=== PATIENT | female | born 1945 | race Caucasian/White ===

== ENCOUNTER 2016-06-05 22:28 | Observation (INO) | payer MEDICARE, OTHER ==
[~2016-06-05] VITALS: Ht 170.2 cm; Wt 107.0 kg
[~2016-06-05 22:28] MED LIST: ASCO500 PO; BUME1TAB PO; CART240C4 PO; DUONI NEB; GEMF600 PO; K-TA10TA5 PO; METF500 PO; METO25 PO; OMEP20TA PO; PLAV75TA PO; PRAM0.5T PO; SERT25TA83 PO; Z.0.OXYGEN INH
[2016-06-05 22:54] VITALS: BP 141/73; PULSE 90; RESP 18; TEMP 98.6; O2SAT 95
[2016-06-06] VITALS (10 sets, daily range): BP systolic 133–196; BP diastolic 60–72; PULSE 74–96; RESP 18; TEMP 97.1–98.8; O2SAT 92–100
[2016-06-06] MEDS ORDERED: METO25TA3 PO (01:49)
[2016-06-06] MEDS ORDERED: GEMF600T PO (01:49)
[2016-06-06] MEDS ORDERED: ALBU0.08 NEB (01:49)
[2016-06-06] MEDS ORDERED: CEFU1TAB20 PO (01:49)
[2016-06-06] MEDS ORDERED: BUME1TAB PO (01:49)
[2016-06-06] MEDS ORDERED: OMEP20TA PO (01:49)
[2016-06-06] MEDS ORDERED: PRAM0.5T PO (01:49)
[2016-06-06] MEDS ORDERED: APIX5TAB PO (01:49)
[2016-06-06] MEDS ORDERED: AMIO200T PO (01:49)
[2016-06-06] MEDS ORDERED: METF500T PO (01:49)
[2016-06-06] MEDS ORDERED: ASPI1TAB69 PO (01:49)
[2016-06-06] MEDS ORDERED: METO2.5T PO (01:49)
[2016-06-06] MEDS ORDERED: POTA-245 PO (01:49)
[2016-06-06] MEDS ORDERED: CART240C PO (01:49)
[2016-06-06] MEDS ORDERED: MONT10TA4 PO (01:49)
[2016-06-06] MEDS ORDERED: TRAZ50TA12 PO (01:49)
--- NOTE | 2016-06-06 02:38 | PD ---
HPI Chief Complaint: Nosebleed Time Seen by Provider: 02:38 Travel History International Travel<30 days: No Contact w/Intl Traveler<30days: No Traveled to known affect area: No History of Present Illness HPI 70-year-old female presents to the emergency department by private transportation for nosebleed since 8:30 PM. Patient is on Eliquis for diagnosis of stroke and atrial fibrillation. Patient denies any digital exploration or trauma to the nose. Patient states she just started spontaneously bleeding from the nose which has been persistent and unremitting since onset. The dizziness no lightheadedness. Nasal congestion and denies any vomiting. No recent illness. Patient has taken medications as prescribed and blood pressure has been well-controlled. No recent respiratory illness. PFSH Past Medical History Narrative Medical Atrial fibrillation diabetes COPD CAD hypertension dyslipidemia 2 mild strokes no tobacco use nursing notes reviewed Arthritis: Yes Asthma: No Atrial Fibrillation: Yes Depression: Yes Cancer: No Cardiovascular Problems: Yes COPD: Yes Diabetes: Yes Patient Takes Glucophage: Yes Diminished Hearing: No Endocrine: No Gastrointestinal Disorders: Yes (GERD-RICHARDSON'S ESOPHAGUS) GERD: Yes Genitourinary: No Hepatitis: No Hiatal Hernia: Yes Hypertension: Yes Immune Disorder: No Medical other: Yes (RESTLESS LEG, 12/07/2015 [facility]UE TO DEHYDRATION) Musculoskeletal: Yes (BOTH HIPS) Neurologic: Yes (MILD STROKE 2016) Psychiatric: Yes (DEPRESSION) Reproductive: No Respiratory: Yes (COPD) Thyroid Disease: No Tetanus Vaccination: < 5 Years Influenza Vaccination: Yes PNEUMOCCOCAL Vaccine (Year): 2 Menopausal: Yes : 1 Para: 1 Past Surgical History Abdominal Surgery: Yes (CHOLY) AICD: No Body Medical Devices: NONE Cardiac Surgery: No Cholecystectomy: Yes Ear Surgery: No Endocrine Surgery: No Eye Surgery: Yes (BILATERAL CATARACTS) Genitourinary Surgery: No Gynecologic Surgery: Yes (HYSTERECTOMY) Hysterectomy: Yes Joint Replacement: No Neurologic Surgery: No Oral Surgery: Yes (TONSILLECTOMY, TEETH EXTRACTION) Pacemaker: No Thoracic Surgery: No Other Surgery: Yes Social History Alcohol Use: Yes (WINE ONCE IN A WHILE) Tobacco Use: No Substance Use: No Allergies-Medications (Allergen,Severity, Reaction): Coded Allergies: Simvastatin (Unverified Allergy, Severe, HIVES, 06/06/16) HMG-CoA Reductase Inhibitors (Verified Allergy, Intermediate, RASH, 06/06/16 ) Reported Meds & Prescriptions Reported Meds & Active Scripts Active Reported Albuterol Neb (Albuterol Sulfate) 2.5 Mg/3 Ml Neb 2.5 Mg NEB TID NEB PRN Klor-Con M20 (Potassium Chloride Microencaps) 20 Meq Tab 20 Meq PO Q12HR Cefuroxime (Cefuroxime Axetil) 500 Mg Tab 500 Mg PO BID Gemfibrozil 600 Mg Tab 600 Mg PO DAILY Take 30 minutes prior to breakfast and dinner. Metoprolol Tartrate 25 Mg Tab 25 Mg PO BID Bumetanide 1 Mg Tab 1 Mg PO BID Pramipexole (Pramipexole Dihydrochloride) 0.5 Mg Tab 0.5 Mg PO TID Metolazone 2.5 Mg Tab 2.5 Mg PO DAILY Cartia Xt (Diltiazem ER 24 HR) 240 Mg Caper 240 Mg PO DAILY Metformin (Metformin HCl) 500 Mg Tab 500 Mg PO BIDPC With meals Eliquis (Apixaban) 5 Mg Tab 5 Mg PO BID Amiodarone (Amiodarone HCl) 200 Mg Tab 200 Mg PO BID Aspirin 81 Mg Tabdr 81 Mg PO DAILY Omeprazole 20 Mg Tab 20 Mg PO DAILY Montelukast (Montelukast Sodium) 10 Mg Tab 10 Mg PO HS Trazodone (Trazodone HCl) 50 Mg Tab 50 Mg PO HS Review of Systems Except as stated in HPI: all other systems reviewed are Neg General / Constitutional: No: Fever, Chills Eyes: No: Visual changes HENT: Positive: Nosebleed, No: Headaches Cardiovascular: No: Chest Pain or Discomfort Respiratory: No: Shortness of Breath Gastrointestinal: No: Vomiting, Abdominal Pain Genitourinary: No: Flank Pain Musculoskeletal: No: Myalgias, Arthralgias Skin: No Rash Neurologic: No: Weakness Psychiatric: No: Anxiety Hematologic/Lymphatic: Positive: Easy Bruising Physical Exam Narrative GENERAL: Well-developed well-nourished female in no acute distress no respiratory distress holding her nose with ongoing epistaxis. SKIN: Warm and dry. HEAD: Normocephalic. EYES: No scleral icterus. No injection or drainage. ENT: Posterior pharynx with fresh blood noted airway is otherwise patent; nasal speculum identifies no nasal septum patient reports this is a chronic problem secondary to infection. NECK: Supple, trachea midline. No JVD or lymphadenopathy. CARDIOVASCULAR: Regular rate and rhythm without murmurs, gallops, or rubs. RESPIRATORY: Breath sounds equal bilaterally. No accessory muscle use. GASTROINTESTINAL: Abdomen soft, non-tender, nondistended. MUSCULOSKELETAL: No cyanosis, or edema. BACK: Nontender without obvious deformity. No CVA tenderness. Data Data Last Documented VS Vital Signs Date Time Temp Pulse Resp B/P Pulse Ox O2 Delivery O2 Flow Rate FiO2 06/06/16 01:50 78 18 06/06/16 01:50 196/68 92 Room Air 06/05/16 22:54 98.6 Orders Thrombin Top Soln (Thrombin Top Soln) (06/06/16 02:45) Gelfoam 100 Top (Gelfoam 100 Top) (06/06/16 02:45) Complete Blood Count With Diff (06/06/16 02:38) Basic Metabolic Panel (Bmp) (06/06/16 02:38) Type And Screen (06/06/16 02:38) Act Partial Throm Time (Ptt) (06/06/16 02:38) Prothrombin Time / Inr (Pt) (06/06/16 02:38) ^ Saline Lock (06/06/16 02:38) Oxymetazoline 0.05% Christiano Anna (Afrin 0.0 (06/06/16 03:00) Place In Observation (06/06/16 ) Vital Signs (Adult) Q4H (06/06/16 04:01) Activity Oob With Assistance (06/06/16 04:01) Diploma Maker / Telemetry .CONTINUOUS (06/06/16 04:01) Sodium Chloride 0.9% Flush (Ns Flush) (06/06/16 04:15) Sodium Chloride 0.9% Flush (Ns Flush) (06/06/16 09:00) Complete Blood Count With Diff (06/07/16 06:00) Case Management Consult (06/06/16 04:01) Scd Bilateral/Knee High TRINI.BID (06/06/16 04:01) Naloxone Inj (Narcan Inj) (06/06/16 04:15) Consult Ent (06/06/16 ) Albuterol-Ipratropium Neb (Duoneb Neb) (06/06/16 04:15) Admit Order (Ed Use Only) (06/06/16 ) ^ Saline Lock (06/06/16 04:03) Resp Oxygen Christiano C Titrat 1-4 L (06/06/16 ) ^ Notify Dr: Other (06/06/16 04:03) Sodium Chloride 0.9% Flush (Ns Flush) (06/06/16 09:00) Sodium Chloride 0.9% Flush (Ns Flush) (06/06/16 04:15) Labs Laboratory Tests Test 06/06/16 02:00 White Blood Count 11.6 TH/MM3 Red Blood Count 4.66 MIL/MM3 Hemoglobin 14.2 GM/DL Hematocrit 42.7 % Mean Corpuscular Volume 91.7 FL Mean Corpuscular Hemoglobin 30.5 PG Mean Corpuscular Hemoglobin 33.3 % Concent Red Cell Distribution Width 16.9 % Platelet Count 197 TH/MM3 Mean Platelet Volume 9.3 FL Neutrophils (%) (Auto) 78.3 % Lymphocytes (%) (Auto) 16.6 % Monocytes (%) (Auto) 4.3 % Eosinophils (%) (Auto) 0.3 % Basophils (%) (Auto) 0.5 % Neutrophils # (Auto) 9.1 TH/MM3 Lymphocytes # (Auto) 1.9 TH/MM3 Monocytes # (Auto) 0.5 TH/MM3 Eosinophils # (Auto) 0.0 TH/MM3 Basophils # (Auto) 0.1 TH/MM3 CBC Comment DIFF FINAL Differential Comment Prothrombin Time 10.7 SEC Prothromb Time International 1.0 RATIO Ratio Activated Partial 23.0 SEC Thromboplast Time Sodium Level 136 MEQ/L Potassium Level 2.5 MEQ/L Chloride Level 90 MEQ/L Carbon Dioxide Level 35.8 MEQ/L Anion Gap 10 MEQ/L Blood Urea Nitrogen 28 MG/DL Creatinine 1.20 MG/DL Estimat Glomerular Filtration 44 ML/MIN Rate Random Glucose 140 MG/DL Calcium Level 9.6 MG/DL Blood Type O NEGATIVE Antibody Screen NEGATIVE MDM Medical Decision Making Medical Screen Exam Complete: Yes Emergency Medical Condition: Yes Medical Record Reviewed: Yes Interpretation(s) CBC & BMP Diagram 06/06/16 02:00 Vital Signs Date Time Temp Pulse Resp B/P Pulse Ox O2 Delivery O2 Flow Rate FiO2 06/06/16 01:50 78 18 06/06/16 01:50 78 18 196/68 92 Room Air 06/05/16 22:54 98.6 90 18 141/73 95 Differential Diagnosis Epistaxis, venous versus arterial, anticoagulation with pelvic was exacerbation , uncontrolled hypertension, local/focal trauma Narrative Course IV access obtained specimens collected and sent for resulting patient 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 Afrin nasal decongestant spray patient with out nasal septum therefore not a true candidate for Rhino Rocket case discussed with on-call ENT recommends thrombin and Gelfoam Coagulation studies not prolonged hemoglobin stable a she is identified to have hypokalemia; patient administered oral replacement of potassium Patient's case discussed with medicine for admission to [facility] at ENTs request Patient's bleeding has subsided patient resting comfortably waiting for transfer to [facility] Physician Communication Physician Communication case discussed with Dr Nash--rec thrombin and gelfoam packing admit to [facility]; discussed with DR Ivory will admit to OBS Diagnosis Primary Impression: Epistaxis Additional Impression: Hypokalemia Admitting Information Admitting Physician Requests: Observation Emily Colin MD Jun 06, 2016 02:38
[2016-06-06] MEDS ORDERED: THROMBIN (TOPICAL) 5,000 UNIT VIAL TOPICAL ONE (02:45)
[2016-06-06] MEDS ORDERED: GELFOAM SIZE 100 TOPICAL ONE (02:45)
[2016-06-06] MEDS ORDERED: OXYMETAZOLINE HCL 0.05% 15 ML NASAL SPRAY NASAL ONE (03:00)
[2016-06-06 03:21] LABS: AUTOMATED NEUTROPHIL # 9.1 TH/MM3 (1.8-7.7); BASOPHIL # 0.1 TH/MM3 (0-0.2); BASOPHIL % 0.5 % (0.0-2.0); EOSINOPHIL % 0.3 % (0.0-4.0); HEMATOCRIT 42.7 % (35.0-46.0); LYMPH % 16.6 % (9.0-44.0); LYMPHOCYTE # 1.9 TH/MM3 (1.0-4.8); MEAN CELL VOLUME 91.7 FL (80.0-100.0); MEAN CORPUSCULAR HEMOGLOBIN 30.5 PG (27.0-34.0); MEAN CORPUSCULAR HGB CONC 33.3 % (32.0-36.0); MONO % 4.3 % (0.0-8.0); NEUT % 78.3 % (16.0-70.0); PLATELET COUNT 197 TH/MM3 (150-450); RED BLOOD COUNT 4.66 MIL/MM3 (4.00-5.30); RED CELL DISTRIBUTION WIDTH 16.9 % (11.6-17.2); WHITE BLOOD COUNT 11.6 TH/MM3 (4.0-11.0)
[2016-06-06 03:33] LABS: PROTHROMBIN TIME - PATIENT 10.7 SEC (9.8-11.6)
[2016-06-06 03:38] LABS: HEMO FLAGS DIFF FINAL
[2016-06-06 04:05] LABS: BICARBONATE 35.8 MEQ/L (21.0-32.0)
[2016-06-06 04:06] LABS: POTASSIUM 2.5 MEQ/L (3.5-5.1)
[2016-06-06] MEDS ORDERED: SODIUM CHLORIDE 0.9% FLUSH 5 ML FLUSH IVF PRN (04:15)
[2016-06-06] MEDS ORDERED: NALOXONE HCL 0.4 MG/ML AMP IV PRN (04:15)
[2016-06-06] MEDS ORDERED: SODIUM CHLORIDE 0.9% FLUSH 5 ML FLUSH FLUSH PRN (04:15)
[2016-06-06] MEDS ORDERED: RESP: ALBUTEROL 2.5 MG/IPRATROPIUM 0.5 MG NEB (PRN) NEB (04:15)
[2016-06-06] MEDS ORDERED: POTASSIUM CHLORIDE 20 MEQ CONTROLLED RELEASE TAB PO ONE ×2 (06:15→18:45)
[2016-06-06] MEDS: SODIUM CHLORIDE 0.9% FLUSH 5 ML FLUSH FLUSH SCH ×2 (08:48→20:30)
[2016-06-06] MEDS ORDERED: SODIUM CHLORIDE 0.9% FLUSH 5 ML FLUSH IVF SCH (09:00)
[2016-06-06 09:58] LABS: MAGNESIUM 1.7 MG/DL (1.5-2.5)
[2016-06-06 10:07] LABS: INDIRECT BILIRUBIN 0.3 MG/DL (0.0-0.8); TOTAL BILIRUBIN ADULT 0.5 MG/DL (0.2-1.0)
[2016-06-06 10:09] LABS: POTASSIUM 2.6 MEQ/L (3.5-5.1)
[2016-06-06] MEDS: POTASSIUM CHLOR 20 MEQ PREMIX 100 ML IV SCH ×2 (10:42→13:17)
[2016-06-06] MEDS: PRAMIPEXOLE DIHYDROCHLORIDE 0.25 MG TAB PO SCH ×2 (13:22→18:24)
--- NOTE | 2016-06-06 18:09 | HHI.HP ---
[facility] Service [facility] Primary Care Physician Non-Staff Admission Diagnosis Epistaxis; Eliquis Diagnoses: Chief Complaint: Epistaxis Travel History International Travel<30 Days: No Contact w/Intl Traveler <30 Da: No Traveled to Known Affected Are: No History of Present Illness Patient is a 70 year old female with primary medical history of A. fib on Eliquis, COPD, CAD, HTN, HLD, CVA 2 mild left-sided weakness, GERD who came into the hospital for epistaxis. States that she woke up with gushing blood on her face. Patient denies any digital exploration or trauma to the nose. Patient states she just started spontaneously bleeding from the nose which has been persistent and unremitting since onset. Nasal packing was done bilaterally. On exam, patient on humidified face tent, denies SOB, dyspnea. States she has COPD and is nebulization at home. She also reports she had some bronchitis, now worsening. Otherwise, denies pain and discomfort. Denies chest pain, palpitations, headaches, dizziness. Denies fevers, chills, n/v/d. Review of Systems Other Negative except for what is noted on history of present illness. Past Family Social History Past Medical History A. fib on Eliquis COPD CAD HTN HLD CVA x 2with mild left-sided weakness Arthritis Preston's esophagus GERD Restless leg Past Surgical History Cholecystectomy Bilateral cataract surgery hysterectomy Foot surgery Tonsillectomy Reported Medications Albuterol Neb (Albuterol Sulfate) 2.5 Mg/3 Ml Neb 2.5 Mg NEB TID NEB PRN Klor-Con M20 (Potassium Chloride Microencaps) 20 Meq Tab 20 Meq PO Q12HR Cefuroxime (Cefuroxime Axetil) 500 Mg Tab 500 Mg PO BID Gemfibrozil 600 Mg Tab 600 Mg PO DAILY Take 30 minutes prior to breakfast and dinner. Metoprolol Tartrate 25 Mg Tab 25 Mg PO BID Bumetanide 1 Mg Tab 1 Mg PO BID Pramipexole (Pramipexole Dihydrochloride) 0.5 Mg Tab 0.5 Mg PO TID Metolazone 2.5 Mg Tab 2.5 Mg PO DAILY Cartia Xt (Diltiazem ER 24 HR) 240 Mg Caper 240 Mg PO DAILY Metformin (Metformin HCl) 500 Mg Tab 500 Mg PO BIDPC With meals Eliquis (Apixaban) 5 Mg Tab 5 Mg PO BID Amiodarone (Amiodarone HCl) 200 Mg Tab 200 Mg PO BID Aspirin 81 Mg Tabdr 81 Mg PO DAILY Omeprazole 20 Mg Tab 20 Mg PO DAILY Montelukast (Montelukast Sodium) 10 Mg Tab 10 Mg PO HS Trazodone (Trazodone HCl) 50 Mg Tab 50 Mg PO HS Allergies: Coded Allergies: Simvastatin (Unverified Allergy, Severe, HIVES, 06/06/16) HMG-CoA Reductase Inhibitors (Verified Allergy, Intermediate, RASH, 06/06/16 ) Active Ordered Medications Current Medications Medications (Trade) Dose Ordered Sig/Olga Route Start Time Stop Time Status Last Admin (NS Flush) 2 ml UNSCH PRN FLUSH 06/06/16 04:15 (NS Flush) 2 ml BID FLUSH 06/06/16 09:00 06/06/16 08:48 (Narcan Inj) 0.4 mg UNSCH PRN IV 06/06/16 04:15 (Cordarone) 200 mg BID PO 06/06/16 21:00 (Bumetanide) 1 mg BID PO 06/06/16 21:00 (Lopid) 600 mg DAILY PO 06/07/16 09:00 (Lopressor) 25 mg BID PO 06/06/16 21:00 (Singulair) 10 mg HS PO 06/06/16 21:00 (Protonix) 20 mg DAILY PO 06/07/16 09:00 (KCl) 20 meq Q12HR PO 06/06/16 21:00 (Mirapex) 0.5 mg TID PO 06/06/16 13:00 06/06/16 13:22 (Desyrel) 50 mg HS PO 06/06/16 21:00 Family History Both parents . Father has stroke Mother has diabetes Social History Reports occasional alcohol use Former smoker quit 25 years ago, smokes 1-to-1/2 pack per day 30 years Denies illicit drug use Physical Exam Vital Signs Vital Signs Date Time Temp Pulse Resp B/P Pulse Ox O2 Delivery O2 Flow Rate FiO2 06/06/16 14:43 97.1 96 18 142/68 96 06/06/16 13:00 88 18 144/60 100 Face Tent 6 28 06/06/16 06:55 77 18 141/72 95 Room Air 06/06/16 06:00 74 18 153/68 93 Room Air 06/06/16 04:28 92 06/06/16 01:50 78 18 06/06/16 01:50 78 18 196/68 92 Room Air 06/05/16 22:54 98.6 90 18 141/73 95 Physical Exam GENERAL: This is a well-nourished, well-developed patient, in no apparent distress. SKIN: No rashes, ecchymoses or lesions. Cool and dry. HEAD: Atraumatic. Normocephalic. No temporal or scalp tenderness. EYES: Pupils equal round and reactive. Extraocular motions intact. No scleral icterus. No injection or drainage. ENT: Nose without bleeding, nasal packing in place bilateral nares. Throat without erythema, dried blood noted. Uvula midline. Airway patent. NECK: Trachea midline. No JVD or lymphadenopathy. Supple, nontender, no meningeal signs. CARDIOVASCULAR: Regular rate and rhythm without murmurs, gallops, or rubs. RESPIRATORY: Diminished breath sounds. No wheezes, rales, or rhonchi. GASTROINTESTINAL: Abdomen soft, non-tender, nondistended. Bowel sounds active 4. MUSCULOSKELETAL: Extremities without clubbing, cyanosis, or edema. No joint tenderness, effusion, or edema noted. No calf tenderness. Negative Homans sign bilaterally. NEUROLOGICAL: Awake and alert. Oriented 3. Motor and sensory grossly within normal limits. No Focal neuro deficit. Normal speech. Laboratory Laboratory Tests Test 06/06/16 06/06/16 02:00 09:20 White Blood Count 11.6 Red Blood Count 4.66 Hemoglobin 14.2 Hematocrit 42.7 Mean Corpuscular Volume 91.7 Mean Corpuscular Hemoglobin 30.5 Mean Corpuscular Hemoglobin 33.3 Concent Red Cell Distribution Width 16.9 Platelet Count 197 Mean Platelet Volume 9.3 Neutrophils (%) (Auto) 78.3 Lymphocytes (%) (Auto) 16.6 Monocytes (%) (Auto) 4.3 Eosinophils (%) (Auto) 0.3 Basophils (%) (Auto) 0.5 Neutrophils # (Auto) 9.1 Lymphocytes # (Auto) 1.9 Monocytes # (Auto) 0.5 Eosinophils # (Auto) 0.0 Basophils # (Auto) 0.1 CBC Comment DIFF FINAL Differential Comment Prothrombin Time 10.7 Prothromb Time International 1.0 Ratio Activated Partial 23.0 Thromboplast Time Sodium Level 136 137 Potassium Level 2.5 2.6 Chloride Level 90 91 Carbon Dioxide Level 35.8 38.0 Anion Gap 10 8 Blood Urea Nitrogen 28 26 Creatinine 1.20 1.10 Estimat Glomerular Filtration 44 49 Rate Random Glucose 140 115 Calcium Level 9.6 9.1 Blood Type O NEGATIVE Antibody Screen NEGATIVE Magnesium Level 1.7 Total Bilirubin 0.5 Direct Bilirubin 0.2 Indirect Bilirubin 0.3 Aspartate Amino Transf 32 (AST/SGOT) Alanine Aminotransferase 93 (ALT/SGPT) Alkaline Phosphatase 58 Total Protein 6.5 Albumin 3.1 Result Diagram: 06/06/16 0200 06/06/16 0920 Assessment and Plan Problem List: (1) Epistaxis ICD Code: R04.0 Status: Acute (2) COPD (chronic obstructive pulmonary disease) with acute bronchitis ICD Code: J44.0 Status: Acute (3) Chronic a-fib ICD Code: I48.2 Status: Chronic (4) HTN (hypertension) ICD Code: I10 Status: Chronic Assessment and Plan Patient is a pleasant 70 year old white female who came into the hospital with epistaxis. Epistaxis - ENT following - Nasal packing done using thrombin and Gelfoam. Unable to use Rhino Rocket secondary to patient doesn't have nasal septum. - Monitor for now. If nasal packing does not work, possible cauterization. - Monitor labs COPD, bronchitis - continue duo nebs, and Ceftin use - Symbicort 2 puffs daily. Montelukast 10 mg daily at bedtime - Monitor respiratory status A. fib, chronic - hold off on Eliquis for now - Continue metoprolol, diltiazem, amiodarone - Monitor vitals HTN - Bumex/KCl, metoprolol, metolazone. - Denies any congestive heart failure diagnosis. -Monitor BP trend Hypokalemia - potassium replaced. - Repeat potassium level. - Monitor BMP tomorrow Restless leg - continue with home med pramipexole HLD - continue gemfibrozil DVT prop SCDs GI prop pantoprazole Written by Yonas Espinoza, acting as scribe for Dr. De Luna on 06/06/16 at 17: 40. The documentation accurately reflects the work performed [id number] by me on 06/06/16 at 1740 Code Status Full code Discussed Condition With Patient, nursing Yonas Nascimento Jun 06, 2016 18:09 Ami De Luna MD Jun 06, 2016 19:08
[2016-06-06] MEDS ORDERED: MAGNESIUM SULFATE 1 GM PREMIX 100 ML IV ONE (18:45)
[2016-06-06] MEDS: BUMETANIDE 1 MG TAB PO SCH (20:28)
[2016-06-06] MEDS: AMIODARONE 200 MG TAB PO SCH (20:31)
[2016-06-06] MEDS: METOPROLOL TARTRATE 25 MG TAB PO SCH (20:31)
[2016-06-06] MEDS: POTASSIUM CHLORIDE 20 MEQ CONTROLLED RELEASE TAB PO SCH (20:31)
[2016-06-06] MEDS ORDERED: MONTELUKAST SODIUM 10 MG TAB PO SCH (21:00)
[2016-06-06] MEDS ORDERED: traZODone HCL 50 MG TAB PO SCH (21:00)
[2016-06-06] MEDS: BUDESONIDE-FORMOTEROL 80/4.5 MCG INHALER INH SCH ×2 (21:00→21:35)
[2016-06-06] MEDS ORDERED: ALPRAZolam 0.25 MG TAB PO ONE (21:15)
[2016-06-06] MEDS: RESP: ALBUTEROL 2.5 MG/IPRATROPIUM 0.5 MG NEB (SCH) NEB (22:11)
[2016-06-07] VITALS: BP 138/74; PULSE 68; RESP 21; TEMP 98; O2SAT 98
[2016-06-07 07:26] LABS: MAGNESIUM 1.6 MG/DL (1.5-2.5); POTASSIUM 3.1 MEQ/L (3.5-5.1)
[2016-06-07 07:52] LABS: AUTOMATED NEUTROPHIL # 9.5 TH/MM3 (1.8-7.7); BASOPHIL # 0.1 TH/MM3 (0-0.2); BASOPHIL % 0.9 % (0.0-2.0); EOSINOPHIL # 0.2 TH/MM3 (0-0.4); EOSINOPHIL % 1.5 % (0.0-4.0); HEMATOCRIT 39.7 % (35.0-46.0); HEMO FLAGS AUTO DIFF; LYMPHOCYTE # 1.7 TH/MM3 (1.0-4.8); MEAN CELL VOLUME 90.5 FL (80.0-100.0); MEAN CORPUSCULAR HEMOGLOBIN 31.1 PG (27.0-34.0); MEAN CORPUSCULAR HGB CONC 34.3 % (32.0-36.0); MONO % 5.4 % (0.0-8.0); NEUT % 78.2 % (16.0-70.0); PLATELET COUNT 140 TH/MM3 (150-450); RED BLOOD COUNT 4.38 MIL/MM3 (4.00-5.30); RED CELL DISTRIBUTION WIDTH 17.2 % (11.6-17.2); WHITE BLOOD COUNT 12.1 TH/MM3 (4.0-11.0)
[2016-06-07 08:05] VITALS: BP 126/63; PULSE 73; RESP 18; TEMP 98.2; O2SAT 94
[2016-06-07] MEDS: RESP: ALBUTEROL 2.5 MG/IPRATROPIUM 0.5 MG NEB (SCH) NEB ×2 (08:19→12:30)
[2016-06-07 08:22] VITALS: O2SAT 97
[2016-06-07 08:27] LABS: PLATELET ESTIMATE SMEAR NORMAL (NORMAL); PLATELET MORPHOLOGY NORMAL (NORMAL); SCAN/DIFF AUTO DIFF CONFIRMED
[2016-06-07] MEDS ORDERED: PANTOPRAZOLE SOD 20 MG DELAYED RELEASE TAB PO SCH (09:00)
[2016-06-07] MEDS ORDERED: GEMFIBROZIL 600 MG TAB PO SCH (09:00)
[2016-06-07] MEDS: BUMETANIDE 1 MG TAB PO SCH (09:25)
[2016-06-07] MEDS: POTASSIUM CHLORIDE 20 MEQ CONTROLLED RELEASE TAB PO SCH (09:25)
[2016-06-07] MEDS: PRAMIPEXOLE DIHYDROCHLORIDE 0.25 MG TAB PO SCH (09:25)
[2016-06-07] MEDS: METOPROLOL TARTRATE 25 MG TAB PO SCH (09:25)
[2016-06-07] MEDS: AMIODARONE 200 MG TAB PO SCH (09:25)
[2016-06-07] MEDS: SODIUM CHLORIDE 0.9% FLUSH 5 ML FLUSH FLUSH SCH (09:25)
[2016-06-07] MEDS: BUDESONIDE-FORMOTEROL 80/4.5 MCG INHALER INH SCH (09:25)
--- NOTE | 2016-06-07 09:49 | HHI.PR ---
Subjective Remarks Patient reports that she is feeling okay. No further nasal bleeding. Awaiting further recommendations from ENT. Objective Vitals Vital Signs Date Time Temp Pulse Resp B/P Pulse Ox O2 Delivery O2 Flow Rate FiO2 06/07/16 08:22 97 Face Tent 4.00 06/07/16 08:05 98.2 73 18 126/63 94 06/07/16 00:00 98.0 68 21 138/74 98 06/06/16 23:00 95 06/06/16 20:16 98.8 88 18 133/61 97 06/06/16 20:00 78 06/06/16 14:43 97.1 96 18 142/68 96 06/06/16 13:00 88 18 144/60 100 Face Tent 6 28 06/06/16 11:30 98 Face Tent 28 I/O 06/06/16 06/06/16 06/06/16 06/07/16 06/07/16 06/07/16 07:00 15:00 23:00 07:00 15:00 23:00 Intake Total 50 ml Balance 50 ml Intake IV Total 50 ml Result Diagram: 06/07/1662506/07/16625 Objective Remarks GENERAL: This is a well-nourished, well-developed patient, in no apparent distress. ENT: Bilateral nose packed with Gelfoam. Dried blood. No active bleeding. CARDIOVASCULAR: Normal rate and regular rhythm without murmurs, gallops, or rubs. RESPIRATORY: Good respiratory efforts. Breath sounds equal and clear to auscultation bilaterally. GASTROINTESTINAL: Abdomen soft, non-tender, non-distended. Normal active bowel sounds MUSCULOSKELETAL: Extremities without cyanosis, or edema. NEURO: Alert & Oriented x4 to person, place, time, situation. Moves all ext x4 PSYCH: Appropriate mood and affect. A/P Problem List: (1) Epistaxis ICD Code: R04.0 Status: Acute (2) COPD (chronic obstructive pulmonary disease) with acute bronchitis ICD Code: J44.0 Status: Acute (3) Chronic a-fib ICD Code: I48.2 Status: Chronic (4) HTN (hypertension) ICD Code: I10 Status: Chronic Assessment and Plan 70-year-old female admitted with: Epistaxis - ENT following - Nasal packing done using thrombin and Gelfoam. - Appreciate ENT following. I was later notified by nursing the patient was seen and cleared for discharge to follow-up in the ENT office tomorrow. She is to resume saline washed and moisturizer. COPD, bronchitis - continue duo nebs, and Ceftin use - Continue Symbicort 2 puffs daily. Montelukast 10 mg daily at bedtime A. fib, chronic -patient to resume Eliquis. - Continue metoprolol, diltiazem, amiodarone HTN - Bumex/KCl, metoprolol, metolazone. Restless leg - continue with home med HLD - continue gemfibrozil Patient is discharge home in stable condition Follow up with ENT tomorrow morning. Activity: Regular as tolerated Diet: Heart healthy Meds: Per med rec. Ami De Luna MD Jun 07, 2016 09:49
[2016-06-07] MEDS ORDERED: POTASSIUM CHLOR 20 MEQ PREMIX 100 ML IV SCH (11:00)
[2016-06-07 12:10] VITALS: BP 121/57; PULSE 75; RESP 18; O2SAT 92
--- NOTE | 2016-06-07 13:04 | HHI.DCPOC ---
Discharge Care Plan Diagnosis: (1) Epistaxis (2) Chronic a-fib (3) COPD (chronic obstructive pulmonary disease) with acute bronchitis (4) HTN (hypertension) Goals to Promote Your Health * To prevent worsening of your condition and complications * To maintain your health at the optimal level Directions to Meet Your Goals Take your medications as prescribed Follow your dietary instruction Follow activity as directed Keep your appointments as scheduled Take your immunizations and boosters as scheduled If your symptoms worsen call your PCP, if no PCP go to Urgent Care Center or Emergency Room Smoking is Dangerous to Your Health. Avoid second hand smoke Call the 24-hour hour crisis hotline for domestic abuse at Ami De Luna MD Jun 07, 2016 13:04
[2016-06-07] MEDS ORDERED: SYMB160A INH (13:05)
--- NOTE | 2016-06-07 16:01 | MB ---
cc: KIP PANDEY M.D. EMILY CRENSHAW M.D. DATE OF CONSULTATION: 06/07/2016 REASON FOR CONSULTATION: Epistaxis. HISTORY OF PRESENT ILLNESS Meseret Tavares is a 70-year-old woman in somewhat poor health. She recently was diagnosed with atrial fibrillation and was begun on Eliquis. She states she was lying at rest on the evening of June 05, when she began profusely bleeding from both sides of her nose and she presented to the [facility] emergency room with this complaint. Her bleeding was managed there by Dr. Emily Crenshaw by packing the nose bilaterally with Gelfoam pledget saturated in 20,000 units of topical thrombin. She noted the patient had a history of septal perforation due to an infection which occurred many years ago. In the past she had suffered brief bouts of epistaxis due to her perforation which she treated with a nasal moisturizing regimen. She had abandoned that regimen prior to her being placed on the anticoagulation medicine. She also has a history of COPD and complained of shortness of breath and dyspnea. At the time of my evaluation there was no bleeding present. Her nose was packed with the Gelfoam and thrombin pledgets. PAST MEDICAL HISTORY: 1. Atrial fibrillation. 2. COPD. 3. Coronary artery disease. 4. Hypertension. 5. History of stroke with mild left-sided weakness. 6. Arthritis. 7. Preston's esophagus 8. Reflux 9. Restless leg syndrome. PAST SURGICAL HISTORY: 1. Cholecystectomy. 2. Bilateral cataract surgery. 3. Hysterectomy. 4. Tonsillectomy. 5. Surgery on her foot. MEDICATIONS PRIOR TO ADMISSION: 1. Albuterol nebulizer. 2. Potassium chloride supplement. 3. Cefuroxime. 4. Gemfibrozil. 5. Metoprolol 6. Bumetanide. 7. Pramipexole. 8. Metolazone. 9. Cartia XT 10. Metformin 11. Eliquis 12. Amiodarone 13. Aspirin 81 milligrams daily. 14. Omeprazole 15. Montelukast. 16. Trazodone ALLERGIES: SIMVASTATIN HMG COA REDUCTASE INHIBITORS PHYSICAL EXAMINATION: On examination she is alert and cooperative. She has no acute distress. Appears somewhat short of breath. Oral cavity, there is dry blood in the oropharynx but no fresh bleeding present. She is edentulous. Mucous membranes are pale and dry. Neck: No nodes or masses. Larynx and trachea midline. Normal salivary and thyroid glands. Ears: Normal auricles, ear canals and tympanic membranes. No sign of hemotympanum. Nose is of fully packed with Gelfoam pledgets, some just spilling from the anterior of the nose and removed without causing any further bleeding. ASSESSMENT 1. Epistaxis 2. Anticoagulation 3. Septal perforation. PLAN Discussed this with Mrs. Tavares and her , advised them that it would be prudent to keep her hospital for 24 hours for observation should she have any further bleeding. We will be able to take immediate steps to control it. Advised her it would be time to return to her moisturization regimen when the removing of the packing from her nose is completed. ADDENDUM June 07, 2017, the patient is seen in the emergency room observation area [facility]. She states she has had no further bleeding from her nose. Fiberoptic examination shows the nose to be partially filled with the Gelfoam pledgets. The perforation is evident. Using Blakesley forceps and a #8 suction, additional fragments of the Gelfoam packing are removed without anesthesia and there is no blood present. She notes her nose was now breathing easily. PLAN Recommend she be discharged. I would like to see her back in 24 hours to continue debridement of her nose. She will begin the saline and the Ponaris moisturization regimen three or four times a day as soon as she gets home. MD NICOLE Walker/FLAQUITA /2:35 PM /3:14 PM
== END 2016-06-07 15:04 | disposition home or self-care (01) ==
LOC: PHED 22:28 → PHEDA 06-06 04:06 → PHEDH 06-06 08:11 → NEPHCDU 06-06 14:21
PROVIDERS: ADMIT Family Medicine; ATTEND Family Medicine
DX: R04.0 Epistaxis (principal); I48.2 Chronic atrial fibrillation; J44.0 Chronic obstructive pulmonary disease with (acute) lower respiratory infection; J20.9 Acute bronchitis, unspecified; I10 Essential (primary) hypertension; E78.5 Hyperlipidemia, unspecified; E87.6 Hypokalemia; K22.70 Barrett's esophagus without dysplasia; I25.10 Atherosclerotic heart disease of native coronary artery without angina pectoris; E11.9 Type 2 diabetes mellitus without complications; G25.81 Restless legs syndrome; Z86.73 Personal history of transient ischemic attack (TIA), and cerebral infarction without residual deficits; Z87.891 Personal history of nicotine dependence; Z79.01 Long term (current) use of anticoagulants
CPT/HCPCS: 80048; 80076; 83735; 84132; 85025; 85610; 85730; 86850; 86900; 86901; 94640; 94664; 99285; G0378; J3475; J3480